=== PATIENT | male | born 1985 | race Hispanic/Latino ===

== ENCOUNTER 2023-04-21 20:58 | Emergency (ER) | payer OTHER, SELFPAY ==
[2023-04-21] VITALS (10 sets, daily range): BP systolic 110–133; BP diastolic 76–98; PULSE 70–88; RESP 15–20; TEMP 36.1; O2SAT 94–100
--- NOTE | ~2023-04-21 | CT_ITS ---
EXAMINATION: CT abdomen pelvis w con DATE: 04/21/2023 23:32 INDICATION: Upper abdominal pain. Hematuria. Bloating. TECHNIQUE: Computed tomography (CT) of the abdomen and pelvis was performed with 100 mL Omnipaque 350 intravenous contrast. Automated exposure control and iterative reconstruction technique were employe d. The dose-length product was 558.27 mGy-cm. COMPARISON: None. FINDINGS: The visualized portions of the lung bases demonstrate mild atelectasis. No pleural effusion . The heart size is normal. No pericardial effusion. The liver, gallbladder, spleen, and pancreas are normal. There is fat stranding between the pancreas and the proximal duodenum. The adrenal glands an d left kidney are normal. There is a 6 mm cyst in right kidney. There are no dilated loops of bowel. The appendix is normal. There are no pathologically enlarged lymph nodes. There is no free intraperit tanner fluid. IMPRESSION: 1. Fat stranding between the proximal duodenum and pancreas, consistent with duodenitis versus acute interstitial pancreatitis. Correlate with lipase. Reviewed, dictated and finalized at location E. IMPRESSION: 1. Fat stranding between the proximal duodenum and pancreas, consistent with du odenitis versus acute interstitial pancreatitis. Correlate with lipase.
[2023-04-21 21:19] LABS: Basophils Absolute Auto 0.1 K/mm3 (0.0-0.1); Basophils Percent Auto 0.7 % (0.2-1.2); Eosinophils Absolute Auto 0.2 K/mm3 (0-0.3); Eosinophils Percent Auto 2.7 % (0-4.4); Hemoglobin 15.8 g/dL (14.0-18.0); Immature Granulocyte Absolute 0.02 K/mm3 (0.00-0.031); Immature Granulocyte Percent A 0.2 % (0-0.5); Lymphocytes Absolute Auto 2.71 K/mm3 (0.9-3.2); Lymphocytes Percent Auto 31.8 % (18.3-44.2); Mean Corpuscular HGB Conc 34.3 g/dl (32-36); Mean Corpuscular Hemoglobin 29.4 pg (26-34); Mean Corpuscular Volume 85.7 fl (80-100); Monocytes Absolute Auto 0.8 K/mm3 (0.1-0.6); Monocytes Percent Auto 9.8 % (2.6-8.5); Neutrophils Absolute Auto 4.7 K/mm3 (1.3-6.7); Neutrophils Percent Auto 54.8 % (45.5-73.1); Platelet Count Result 228 k/mm3 (150-375); Red Blood Count 5.37 M/mm3 (4.6-6.20); Red Cell Distribution Width 12.4 % (11.5-14.5); White Blood Count 8.5 K/mm3 (4.5-10.0)
[2023-04-21 21:29] LABS: Alanine Aminotransferase 28 U/L (6-50); Albumin Level 4.6 g/dL (3.5-5.1); Alkaline Phosphatase 76 U/L (38-126); Anion Gap 9 mmol/L (8-16); Aspartate Amino Transferase 32 U/L (17-59); Bilirubin,Total 0.4 mg/dL (0.2-1.3); Blood Urea Nitrogen 16 mg/dL (9-20); Calcium 9.3 mg/dL (8.4-10.2); Carbon Dioxide 24 mmol/L (22-30); Chloride 103 mmol/L (98-107); Estimated CRCL calculation 91 ml/min; Estimated Glomerular Filt Rate > 60; Glucose 97 mg/dL (65-110); Lipase 63 U/L (23-300); Sodium 136 mmol/L (137-145)
[2023-04-21 21:59] LABS: Appearance Urine Clear (Clear); Bacteria Urine None Seen /hpf; Bilirubin Urine Negative (Negative); Blood Urine 2+ (Negative); Color Urine Yellow (Yellow); Glucose Urine UA Negative (Negative); Ketones Urine Negative (Negative); Leukocyte Esterase Ur Negative LEU/UL (Negative); Nitrate Urine Negative (Negative); Non Pathogenic Casts 0-2; Protein Urine Negative (Negative); Squamous Epithelial Cell Urine None seen /hpf (Few); Urobilinogen Urine 0.2 mg/dL (<2.0); WBC Urine 0-5 /hpf
[2023-04-21 22:14] LABS: Add Urine Microscopic? YES
--- NOTE | 2023-04-21 23:06 | ED.ABDPAIN ---
HPI - Abdominal Pain General Chief Complaint: Abdominal Pain Stated Complaint: upper abd/back pain Time Seen by Provider: 04/21/23 21:42 Source: patient and family Mode of arrival: ambulatory Limitations: no limitations and language barrier History of Present Illness HPI narrative: Patient is a 37-year-old male who presents to the ED with report of upper abdominal pain. Patient is primarily [place]-speaking. Family at bedside assisted in providing translation. Patient reports he has felt bloated throughout his abdomen for the last 3 days. Today, he developed pain across his upper abdomen and mid upper back. Back pain is worse with movement and laying flat. He tried taking ibuprofen without relief. He states he has had similar back pain in the past, but not the abdominal pain. Denies any nausea, vomiting, diarrhea, constipation, urinary symptoms, fevers, difficulty breathing, pleuritic pain, chest pain. Related Data Allergies Allergy/AdvReac Type Severity Reaction Status Date / Time No Known Allergies Allergy Unverified 08/23/18 19:36 Review of Systems Review of Systems: CONSTITUTIONAL: Denies fever, chills, or sweats. CARDIOVASCULAR: Denies chest pain. RESPIRATORY: Denies pleuritic pain, dyspnea. GASTROINTESTINAL: See HPI. GENITOURINARY: Denies dysuria or hematuria. SKIN: Denies rash or itching. MUSCULOSKELETAL: See HPI. NEUROLOGIC: Denies headache, numbness, or weakness. All systems reviewed & are unremarkable except as noted in HPI and below Exam Narrative: GENERAL: Well appearing, obese with BMI of 31.9, non-toxic, in no acute distress. HEAD: Normocephalic, atraumatic. NECK: Supple. No adenopathy, no masses. RESPIRATORY: Airway patent, respirations nonlabored. Clear to auscultation bilaterally, no rales, rhonchi, wheezing. CARDIOVASCULAR: Regular rate and rhythm without murmurs, rubs, or gallops. Radial pulses 2+ and equal bilaterally. ABDOMINAL: Soft, no significant tenderness or abdomen, minimal tenderness to epigastric region, nondistended, no hepatosplenomegaly. Normoactive BS. MUSCULOSKELETAL: Moves all extremities. Strength/ROM intact without gross deformities. No significant tenderness throughout upper back. No midline spinal tenderness. SKIN: Warm, dry, normal color. No rashes. NEURO: A&O X3. Speech clear. Cranial nerves II-XII grossly intact. Steady gait. No ataxic movements. PSYCHIATRIC: Appropriate mood and affect. Normal interaction. Course Vital Signs Vital signs: Vital Signs Temperature 97.0 F L 04/21/23 21:07 Pulse Rate 80 04/21/23 21:07 Respiratory Rate 17 04/21/23 21:07 Blood Pressure 121/98 H 04/21/23 21:07 Pulse Oximetry 98 04/21/23 21:07 Oxygen Delivery Room Air 04/21/23 21:07 Temperature 97.0 F L 04/21/23 21:07 Pulse Rate 88 04/21/23 21:49 Respiratory Rate 15 04/21/23 21:49 Blood Pressure 133/89 04/21/23 21:49 Pulse Oximetry 100 04/21/23 21:49 Oxygen Delivery Room Air 04/21/23 21:07 MDM - Abdominal Pain MDM Narrative Medical decision making narrative: Patient presented to ED with 3-day history of abdominal bloating, upper abdomen and upper back pain onset today. Vital stable upon arrival. Patient in no acute distress. Exam unremarkable. No significant reproducible tenderness, minimal epigastric tenderness. Basic laboratory studies unremarkable. No leukocytosis. Normal electrolytes and kidney function. Normal LFTs and lipase. UA with 2+ blood, 6-10 RBC, no other signs of infection. EKG without ischemic changes. Will attempt pain control and obtain imaging. CT scan of abdomen pelvis obtained and showing duodenitis vs pancreatitis. Recommended correlation with lipase. Again, lipase WNL at 63. Duodenitis would be consistent with patient's symptoms with bloating and upper abdominal pain. Will treat like ulcer with omeprazole. On reevaluation, patient resting comfortably, he is feeling much better with supportive therapy. Discussed
--- NOTE | 2023-04-21 23:08 | ECG_ITS ---
Measurements Intervals [place] Rate: 72 P: 50 MD: 167 QRS: 67 QRSD: 91 T: 38 QT: 358 QTc: 393 Interpretive Statements SINUS RHYTHM NORMAL ECG NO PREVIOUS ECG AVAILABLE FOR COMPARISON Electronically Signed On 04-22-2023 7:48:34 CDT by Chaim Rodas D.O.
[2023-04-21] MEDS: ACETAMINOPHEN 500 MG TABLET 1000 MG PO (23:20)
[2023-04-21] MEDS: CYCLOBENZAPRINE HCL 5 MG TABLET PO (23:20)
[2023-04-22] VITALS: PULSE 73; RESP 15; O2SAT 98
[2023-04-22 00:15] VITALS: PULSE 70; RESP 20; O2SAT 97
[2023-04-22 00:31] VITALS: BP 111/73; PULSE 67; RESP 19; O2SAT 97
[2023-04-22 00:45] VITALS: PULSE 66; RESP 17; O2SAT 95
[2023-04-22 00:57] VITALS: BP 114/72; PULSE 69; RESP 15; O2SAT 95
[2023-04-22 01:15] VITALS: BP 109/74; PULSE 67; RESP 18; TEMP 37; O2SAT 96
== END 2023-04-22 01:17 | disposition home or self-care (01) ==
PROVIDERS: Emergency Medicine; Emergency Provider Physician Assistant
DX: K29.80 Duodenitis without bleeding (principal)
CPT/HCPCS: 36415; 74177; 80053; 81001; 83690; 85025; 93005; 99284; A9270; Q9967